=== PATIENT | female | born 1970 | race Caucasian/White ===

== ENCOUNTER 2017-05-23 10:24 | Emergency (ER) | payer OTHER ==
[2017-05-23 11:16] LABS: PLATELET COUNT 271 10^3/uL (150-400)
[2017-05-23] MEDS ORDERED: IOPAMIDOL (ISOVUE-300) 100 ML BTL ONE (13:42)
--- NOTE | 2017-05-23 14:14 | EDPHY ---
H & P Stated Complaint: RLQ pain since last pm - Personal History LMP (Females 10-55): 15-21 Days Ago Current Tetanus Diphtheria and Acellular Pertussis (TDAP): Yes Tetanus Vaccine Date: 2005 - Medical/Surgical History Hx Asthma: No Hx Chronic Respiratory Disease: No Hx Diabetes: No Hx Cardiac Disease: No Hx Renal Disease: No Hx Cirrhosis: No Hx Alcoholism: No Hx HIV/AIDS: No Hx Splenectomy or Spleen Trauma: No Other PMH: uterine fibroids removed . dental surgery . Sinus elevation - Social History Smoking Status: Never smoked HPI/ROS: Chief complaint: Abdominal pain History of present illness: This is a 46-year-old female who presents to the emergency department for evaluation of abdominal pain. Patient reports the onset of symptoms last night. She reports a soreness in the right, lower aspect of her abdomen. It has been persistent throughout the night and into this morning. She denies any precipitating factors. She denies any alleviating factors. She denies other associated signs or symptoms including no fevers, no nausea, vomiting diarrhea or constipation, no urinary symptoms, no abnormal vaginal discharge or bleeding. Review of systems: A 10 point review of systems was obtained and other than described above was negative (Waqar Solomon) - Physical Exam Exam: General Appearance: Alert, nontoxic. Eyes: Pupils equal and round no pallor or injection. ENT, Mouth: Mucous membranes moist. Respiratory: There are no retractions, lungs are clear to auscultation. Cardiovascular: Regular rate and rhythm. Gastrointestinal: Bowel sounds normal. The abdomen is soft and nondistended. There is mild tenderness in the right lower quadrant including over McBurney's point. However no peritoneal signs. Neurological: Alert and oriented x4. Strength and sensation intact and symmetrical. Skin: Warm and dry, no rashes. Musculoskeletal: Neck is supple non tender. Extremities are symmetrical, full range of motion. Psychiatric: Patient is oriented X 3, there is no agitation. (Waqar Solomon) Constitutional: Initial Vital Signs Temperature (C) 36.8 C 05/23/17 10:28 Heart Rate 82 05/23/17 10:28 Respiratory Rate 18 05/23/17 10:28 Blood Pressure 109/78 05/23/17 10:28 O2 Sat (%) 98 05/23/17 10:28 O2 Delivery Mode Room Air Allergies/Adverse Reactions: Sulfa (Sulfonamide Antibiotics) Allergy (Verified 09/28/13 16:31) Hives LACTOSE INTOL Allergy (Intermediate, Uncoded 08/10/13 14:15) Diarrhea Home Medications: Medication Instructions Recorded NK [No Known Home Meds] 05/23/17 Medical Decision Making - Diagnostics Imaging: Discussed imaging studies w/ call center support representative Radiologist ED Course/Re-evaluation: Patient seen under the supervision of my secondary supervising physician Dr. Alejandro Evans. Patient presents to the emergency department for evaluation of abdominal pain. She is nontoxic. Afebrile and vital signs are stable. There is mild tenderness in the right lower quadrant. Blood studies are unremarkable. Urinalysis is unremarkable. Ultrasounds are normal although the appendix was not visualized. Given site of pain a CT scan is obtained and only shows constipation. Repeat abdominal examination is unchanged. I have discussed with patient at this time we have not found significant underlying pathology that requires further emergency department intervention or inpatient management. She is discharged home. Home care is discussed including the use of stool softeners. I have asked her to return immediately for any worsening symptoms otherwise she is to follow up with her primary care doctor this week for recheck. Patient voiced understanding and agreement with plan. (Waqar Solomon) I did not see this patient while she was in the emergency department. However her care was discussed with the PA while the patient is in the department. I agree with treatment plan and management (Alejandro Evans) Differential Diagnosis: Included but not limited to appendicitis, colitis, diverticulitis ovarian cyst, ovarian torsion tubo-ovarian abscess, with associated complications ( Waqar Solomon) - Data Points Laboratory Results: Laboratory Results 05/23/17 10:50 05/23/17 10:50 Departure - Departure Disposition: Home, Routine, Self-Care Clinical Impression: Abdominal pain Qualifiers: Abdominal location: right lower quadrant Qualified Code(s): R10.31 - Right lower quadrant pain Condition: Good Instructions: Acute Abdominal Pain (ED) Additional Instructions: Follow-up with your primary care doctor for recheck If symptoms worsen or new symptoms develop return to the emergency room for recheck Referrals: HU VASQUEZ [Primary Care Provider] - As per Instructions
[2017-05-23 14:36] VITALS: BP 122/72; PULSE 76; RESP 16; TEMP 98.6; O2SAT 99
== END 2017-05-23 14:36 | disposition home or self-care (01) ==
DX: R10.31 Right lower quadrant pain (principal)
CPT/HCPCS: Q9967